=== PATIENT | female | born 2000 | race Caucasian/White ===

== ENCOUNTER 2021-01-07 02:16 | Observation (INO) | payer OTHER ==
[~2021-01-07] VITALS: Ht 154.9 cm; Wt 72.6 kg
[~2021-01-07 02:16] MED LIST: XOPENEX HFA15 GM
[2021-01-07] MEDS ORDERED: SODIUM CHLORIDE 0.9% 1000ML 1,000 ML IV ONE (02:30)
[2021-01-07] MEDS ORDERED: ALBUTEROL SULF 0.083% NEB SOLN 3 ML NEB NEB STA (02:30)
[2021-01-07] MEDS ORDERED: IPRATROPIUM BROMIDE 0.02% 2.5 ML NEB NEB ONE (02:30)
[2021-01-07] MEDS ORDERED: METHYLPREDNISOLONE SOD SUCC 125 MG/2ML VIAL IV ONE (02:30)
[2021-01-07 02:58] LABS: BASOPHILS % 0.2 % (0.0-1.0); EOSINOPHILS % 0.1 % (0.0-6.0); HEMATOCRIT 39.7 % (34.2-44.1); HEMOGLOBIN 13.2 g/dL (12.0-16.0); LYMPHOCYTES # (AUTO) 0.6 (1.0-3.2); LYMPHOCYTES % 3.8 % (18.0-39.1); MEAN CORPUSCULAR HGB CONC 33.2 g/dL (31-35); MEAN CORPUSCULAR VOLUME 81.4 fL (81-99); MONOCYTES # (AUTO) 0.1 (0.2-0.8); MONOCYTES % 0.9 % (4.4-11.3); NEUTROPHILS # (AUTO) 14.3 (2.1-6.9); NEUTROPHILS % 94.6 % (38.7-80.0); PLATELET COUNT 399 x10e3/uL (140-360); RED BLOOD COUNT 4.88 x10e6/uL (3.6-5.1); RED CELL DISTRIBUTION WIDTH 13.1 % (11.7-14.4)
[2021-01-07 03:14] LABS: ANION GAP 16.6 mmol/L (8-16); BLOOD UREA NITROGEN 5 mg/dL (7-26); BUN/CREATININE RATIO 8 (6-25); CALCIUM 9.1 mg/dL (8.4-10.2); CARBON DIOXIDE 17 mmol/L (22-29); CHLORIDE 109 mmol/L (98-107); EST GLOMERULAR FILTRATION RATE > 60 ML/MIN (60-); GLUCOSE 143 mg/dL (74-118); POTASSIUM 3.6 mmol/L (3.5-5.1); SODIUM 139 mmol/L (136-145)
[2021-01-07] MEDS ORDERED: METHYLPREDNISOLONE SOD SUCC 40 MG/ML VIAL 1ML IV SCH ×2 (06:00→14:00)
[2021-01-07] MEDS ORDERED: GUAIFENESIN/DEXTROMETHORPHAN LIQD 5 ML UDC NG PRN (06:45)
[2021-01-07] MEDS: ALBUTEROL/IPRATROPIUM 3 ML NEB NEB SCH ×3 (07:00→15:00)
[2021-01-07] MEDS: SODIUM CHLORIDE 0.9% 1000ML 1,000 ML IV SCH ×2 (07:37→12:45)
[2021-01-07] MEDS: FAMOTIDINE 20 MG TAB PO SCH ×2 (07:37→16:30)
[2021-01-07] MEDS ORDERED: PREN/MULTIVIT/MIN/FOL AC/IRON 1 TAB PO SCH (09:00)
[2021-01-07] MEDS ORDERED: LORATADINE 10 MG TAB PO SCH (09:00)
[2021-01-07] MEDS: FLUTICASONE PROPIONATE NASAL SPRAY NS SCH ×2 (09:19→16:43)
[2021-01-07 12:00] VITALS: BP 112/64
[2021-01-07 12:17] VITALS: BP 112/64
[2021-01-07 16:00] VITALS: BP 134/72
[2021-01-07] MEDS ORDERED: PROMETHAZINE HC25 M1 PO (16:25)
== END 2021-01-07 17:10 | disposition home or self-care (01) ==
LOC: ER 02:32 → ERHOLD 06:00 → MED/SURG2 10:16
PROVIDERS: ADMIT Internal Medicine; ATTEND Internal Medicine
DX: O98.511 Other viral diseases complicating pregnancy, first trimester (principal); O99.511 Diseases of the respiratory system complicating pregnancy, first trimester; U07.1 COVID-19; J12.82 Pneumonia due to coronavirus disease 2019; O26.891 Other specified pregnancy related conditions, first trimester; Z3A.01 Less than 8 weeks gestation of pregnancy; J45.41 Moderate persistent asthma with (acute) exacerbation
CPT/HCPCS: 36415; 71045; 80048; 80061; 82948; 83036; 84702; 85025; 94640 ×2; 99284; G0378; J2920; J2930; J7030; U0002

== ENCOUNTER 2022-12-30 06:37 | Inpatient (IN) | payer OTHER, MEDICAID ==
[~2022-12-30] VITALS: Ht 154.9 cm; Wt 83.5 kg
[~2022-12-30 06:37] MED LIST changes: +PROMETHAZINE HC25 M1 PO
[2022-12-30] MEDS ORDERED: METHYLPREDNISOLONE SOD SUCC 125 MG/2ML VIAL IV ONE (06:45)
[2022-12-30] MEDS ORDERED: ALBUTEROL/IPRATROPIUM 3 ML NEB NEB ONE (06:45)
[2022-12-30] MEDS ORDERED: SODIUM CHLORIDE 0.9% 1000ML 1,000 ML IV ONE ×2 (06:45→09:00)
[2022-12-30 06:55] LABS: BASOPHILS % 0.1 % (0.0-1.0); HEMATOCRIT 39.1 % (34.2-44.1); HEMOGLOBIN 13.8 g/dL (12.0-16.0); LYMPHOCYTES # (AUTO) 0.7 (1.0-3.2); LYMPHOCYTES % 4.1 % (18.0-39.1); MEAN CORPUSCULAR HEMOGLOBIN 28.3 pg (28-32); MEAN CORPUSCULAR HGB CONC 35.3 g/dL (31-35); MEAN CORPUSCULAR VOLUME 80.3 fL (81-99); MONOCYTES # (AUTO) 0.5 (0.2-0.8); MONOCYTES % 3.3 % (4.4-11.3); NEUTROPHILS # (AUTO) 14.5 (2.1-6.9); NEUTROPHILS % 91.7 % (38.7-80.0); PLATELET COUNT 337 x10e3/uL (140-360); RED BLOOD COUNT 4.87 x10e6/uL (3.6-5.1); RED CELL DISTRIBUTION WIDTH 18.4 % (11.7-14.4)
[2022-12-30] MEDS ORDERED: ALBUTEROL/IPRATROPIUM 3 ML NEB ONE (06:56)
[2022-12-30] MEDS ORDERED: ONDANSETRON HCL INJ 2MG/ML 2ML 2 MG/ML VIAL IV STA (07:14)
[2022-12-30 07:42] LABS: ALBUMIN 4.3 g/dL (3.5-5.0); ALBUMIN/GLOBULIN RATIO 1.2 (0.8-2.0); ANION GAP 15.9 mmol/L (8-16); CALCIUM 9.5 mg/dL (8.4-10.2); CREATININE, SERUM 0.72 mg/dL (0.57-1.11); POTASSIUM 3.9 mmol/L (3.5-5.1)
[2022-12-30] MEDS ORDERED: ONDANSETRON HCL INJ 2MG/ML 2ML 2 MG/ML VIAL IV PRN (08:15)
[2022-12-30] MEDS: NIRMATRELVIR/RITONAVIR 1 EACH BOX PO SCH ×2 (09:15→20:00)
[2022-12-30] MEDS ORDERED: ACETAMINOPHEN 325 MG TAB PO PRN (09:30)
[2022-12-30] MEDS ORDERED: IOPAMIDOL 370 MG/ML 100 ML INFUS..BTL INJ ONE (09:56)
[2022-12-30] MEDS ORDERED: BENZONATATE 100 MG CAP PO PRN (10:00)
[2022-12-30] MEDS: APIXAB 2.5 MG TABLET PO SCH ×2 (10:40→17:44)
[2022-12-30] MEDS: ALBUTEROL/IPRATROPIUM 3 ML NEB NEB SCH ×4 (11:05→23:20)
[2022-12-30] MEDS: SODIUM CHLORIDE 0.9% 1000ML 1,000 ML IV SCH ×2 (13:08→17:44)
[2022-12-30 14:30] VITALS: BP 119/63
[2022-12-30 14:46] VITALS: BP 119/63
[2022-12-30 15:34] VITALS: BP 119/63
[2022-12-30] MEDS: BENZONATATE 100 MG CAP PO SCH ×2 (17:44→22:27)
[2022-12-30 20:00] VITALS: BP 126/74
[2022-12-30 21:00] VITALS: BP 126/74
[2022-12-30] MEDS: METHYLPREDNISOLONE SOD SUCC 40 MG/ML VIAL 1ML IV SCH (22:26)
[2022-12-31] VITALS (8 sets, daily range): BP systolic 111–139; BP diastolic 66–84
[2022-12-31] MEDS: ALBUTEROL/IPRATROPIUM 3 ML NEB NEB SCH ×6 (03:20→23:25)
[2022-12-31] MEDS: SODIUM CHLORIDE 0.9% 1000ML 1,000 ML IV SCH ×4 (05:30→23:04)
[2022-12-31 05:48] LABS: BASOPHILS % 0.1 % (0.0-1.0); HEMATOCRIT 38.7 % (34.2-44.1); HEMOGLOBIN 12.3 g/dL (12.0-16.0); LYMPHOCYTES # (AUTO) 0.7 (1.0-3.2); MEAN CORPUSCULAR HEMOGLOBIN 25.2 pg (28-32); MEAN CORPUSCULAR HGB CONC 31.8 g/dL (31-35); MEAN CORPUSCULAR VOLUME 79.3 fL (81-99); MONOCYTES # (AUTO) 0.2 (0.2-0.8); MONOCYTES % 1.5 % (4.4-11.3); NEUTROPHILS # (AUTO) 15.1 (2.1-6.9); NEUTROPHILS % 93.6 % (38.7-80.0); PLATELET COUNT 390 x10e3/uL (140-360); RED BLOOD COUNT 4.88 x10e6/uL (3.6-5.1); RED CELL DISTRIBUTION WIDTH 14.6 % (11.7-14.4)
[2022-12-31 06:12] LABS: ANION GAP 11.5 mmol/L (8-16); CALCIUM 8.9 mg/dL (8.4-10.2); CREATININE, SERUM 0.74 mg/dL (0.57-1.11); POTASSIUM 4.5 mmol/L (3.5-5.1)
[2022-12-31] MEDS: NIRMATRELVIR/RITONAVIR 1 EACH BOX PO SCH (08:48)
[2022-12-31] MEDS: APIXAB 2.5 MG TABLET PO SCH ×2 (08:48→17:19)
[2022-12-31] MEDS: METHYLPREDNISOLONE SOD SUCC 40 MG/ML VIAL 1ML IV SCH ×2 (08:49→23:05)
[2022-12-31] MEDS: BENZONATATE 100 MG CAP PO SCH ×3 (08:49→23:05)
[2022-12-31] MEDS ORDERED: REMDESIVIR 100MG 200 MG in SODIUM CHLORIDE 0.9% 100 ML IV ONE (13:00)
[2022-12-31] MEDS: DEXAMETHASONE 4 MG TAB PO SCH (14:27)
[2023-01-01] VITALS (8 sets, daily range): BP systolic 114–141; BP diastolic 74–96
[2023-01-01] MEDS: ALBUTEROL/IPRATROPIUM 3 ML NEB NEB SCH ×6 (03:20→22:45)
[2023-01-01] MEDS: DEXAMETHASONE 4 MG TAB PO SCH (07:53)
[2023-01-01] MEDS: APIXAB 2.5 MG TABLET PO SCH ×2 (07:53→18:41)
[2023-01-01] MEDS: BENZONATATE 100 MG CAP PO SCH ×3 (07:54→23:36)
[2023-01-01] MEDS: SODIUM CHLORIDE 0.9% 1000ML 1,000 ML IV SCH ×2 (07:54→15:13)
[2023-01-01] MEDS: METHYLPREDNISOLONE SOD SUCC 40 MG/ML VIAL 1ML IV SCH (07:54)
[2023-01-01] MEDS ORDERED: REMDESIVIR 100MG 100 MG in SODIUM CHLORIDE 0.9% 100 ML IV SCH (14:00)
[2023-01-01] MEDS: GUAIFENESIN 600 MG TAB PO PRN (18:41)
[2023-01-02] VITALS (8 sets, daily range): BP systolic 132–141; BP diastolic 65–91
[2023-01-02] MEDS ORDERED: ONDANSETRON HCL 4 MG ORAL DISINTEGRATING TAB PO PRN (06:45)
[2023-01-02] MEDS: ALBUTEROL/IPRATROPIUM 3 ML NEB NEB SCH ×3 (08:00→20:45)
[2023-01-02] MEDS: AZITHROMYCIN 250 MG TAB PO SCH (10:04)
[2023-01-02] MEDS: APIXAB 2.5 MG TABLET PO SCH ×2 (10:04→16:48)
[2023-01-02] MEDS: GUAIFENESIN 600 MG TAB PO PRN (10:04)
[2023-01-02] MEDS: BENZONATATE 100 MG CAP PO SCH ×3 (10:05→21:06)
[2023-01-02] MEDS: DEXAMETHASONE 4 MG TAB PO SCH (10:05)
[2023-01-02] MEDS ORDERED: IOPAMIDOL 370 MG/ML 100 ML INFUS..BTL INJ ONE (12:18)
[2023-01-02] MEDS ORDERED: REMDESIVIR 100MG 100 MG in SODIUM CHLORIDE 0.9% 100 ML IV SCH (14:00)
[2023-01-02] MEDS: NICOTINE 21 MG/EA PATCH TOP SCH (23:30)
[2023-01-03 00:46] VITALS: BP 115/73
[2023-01-03] MEDS: ALBUTEROL/IPRATROPIUM 3 ML NEB NEB SCH ×3 (02:05→13:05)
[2023-01-03 04:00] VITALS: BP 142/77
[2023-01-03 08:04] VITALS: BP 133/76
[2023-01-03 08:57] VITALS: BP 133/76
[2023-01-03] MEDS: APIXAB 2.5 MG TABLET PO SCH (09:47)
[2023-01-03] MEDS: DEXAMETHASONE 4 MG TAB PO SCH (09:47)
[2023-01-03] MEDS: BENZONATATE 100 MG CAP PO SCH (09:48)
[2023-01-03] MEDS: AZITHROMYCIN 250 MG TAB PO SCH (09:48)
[2023-01-03] MEDS: NICOTINE 21 MG/EA PATCH TOP SCH (09:48)
[2023-01-03 11:56] VITALS: BP 129/85
[2023-01-03] MEDS ORDERED: ELIQUIS2.5 MG PO (12:26)
[2023-01-03] MEDS ORDERED: PROAIR DIGIHAL90 MCG (12:27)
[2023-01-03] MEDS ORDERED: DOXYCYCLINE HY100 MG PO (12:28)
== END 2023-01-03 13:48 | disposition home or self-care (01) | DRG 177 ==
LOC: ER 06:50 → ERHOLD 08:05 → OBSVTOIN 09:39 → MED/SURG3 14:29 → OBSVTOIN 12-31 09:21 → INTOOBSV 12-31 09:21
PROVIDERS: ADMIT Internal Medicine; ATTEND Internal Medicine
PROC: 8E0ZXY6 Isolation (ICD-10-PCS; 2022-12-30)
PROC: XW033E5 Introduction of Remdesivir Anti-infective into Peripheral Vein, Percutaneous Approach, New Technology Group 5 (ICD-10-PCS; principal; 2023-01-02)
DX: U07.1 COVID-19 (principal); J15.9 Unspecified bacterial pneumonia; J96.01 Acute respiratory failure with hypoxia; J45.901 Unspecified asthma with (acute) exacerbation; F17.200 Nicotine dependence, unspecified, uncomplicated
CPT/HCPCS: 36415; 71045; 71260; 80048; 80053; 84702; 85025; 87400; 93005; 94799; 99252; 99284; J0248; J0456; J0696; J2920; J2930; J7030; J7050; Q9967

== ENCOUNTER 2024-10-06 00:13 | Emergency (ER) | payer MEDICAID, OTHER ==
[~2024-10-06] VITALS: Ht 157.5 cm; Wt 86.2 kg
[~2024-10-06 00:13] MED LIST changes: +DOXYCYCLINE HY100 MG PO; +ELIQUIS2.5 MG PO; +PROAIR DIGIHAL90 MCG
[2024-10-06 00:21] VITALS: RESP 20; TEMP 98.3
[2024-10-06] MEDS: PREDNISONE 20 MG TAB PO STA (00:35)
[2024-10-06] MEDS: ALBUTEROL/IPRATROPIUM 3 ML NEB NEB STA (00:42)
[2024-10-06 00:43] VITALS: PULSE 107; RESP 20; O2SAT 96
[2024-10-06 01:12] LABS: CORONAVIRUS COVID-19 AG NEGATIVE (NEGATIVE); INFLUENZA A AG NEGATIVE (NEGATIVE); INFLUENZA B AG NEGATIVE (NEGATIVE)
[2024-10-06 01:20] VITALS: PULSE 107
[2024-10-06] MEDS ORDERED: AZITHROMYCIN250 MG PO (01:20)
[2024-10-06] MEDS ORDERED: PREDNISONE20 MG PO (01:20)
[2024-10-06] MEDS ORDERED: VENTOLIN HFA18 GM INH (01:20)
[2024-10-06 01:30] VITALS: BP 125/72; PULSE 108; RESP 20; O2SAT 96
== END 2024-10-06 01:28 | disposition home or self-care (01) ==
LOC: ER 00:26
DX: R06.02 Shortness of breath (principal); J06.9 Acute upper respiratory infection, unspecified; J45.901 Unspecified asthma with (acute) exacerbation; R05.9 Cough, unspecified; Z11.52 Encounter for screening for COVID-19
CPT/HCPCS: 87428; 94640; 94799; 99283; J7512

== ENCOUNTER 2024-10-12 19:50 | Emergency (ER) | payer MEDICAID ==
[~2024-10-12] VITALS: Ht 154.9 cm; Wt 88.5 kg
[~2024-10-12 19:50] MED LIST changes: +AZITHROMYCIN250 MG PO; +PREDNISONE20 MG PO; +VENTOLIN HFA18 GM INH
[2024-10-12 19:58] VITALS: TEMP 98.9
[2024-10-12] MEDS ORDERED: ALBUTEROL SULF 0.083% NEB SOLN 3 ML NEB ONE (20:17)
[2024-10-12] MEDS: METHYLPREDNISOLONE SOD SUCC 125 MG/2ML VIAL IM ONE (20:23)
[2024-10-12] MEDS: ALBUTEROL SULF 0.083% NEB SOLN 3 ML NEB NEB STA (20:25)
[2024-10-12 20:26] VITALS: PULSE 101; RESP 20; O2SAT 99
[2024-10-12] MEDS: IPRATROPIUM BROMIDE 0.02% 2.5 ML NEB NEB ONE (20:26)
[2024-10-12] MEDS ORDERED: MEDROL4 M2 PO (21:11)
[2024-10-12] MEDS ORDERED: ALBUTEROL1.25 MG/3 NEB (21:11)
[2024-10-12] MEDS ORDERED: VENTOLIN HFA18 GM INH (21:11)
[2024-10-12 21:20] VITALS: PULSE 93; RESP 20
[2024-10-12 21:26] VITALS: BP 140/91; PULSE 105; RESP 20; O2SAT 98
== END 2024-10-12 21:30 | disposition home or self-care (01) ==
LOC: ER 19:59
DX: R06.02 Shortness of breath (principal); J45.901 Unspecified asthma with (acute) exacerbation
CPT/HCPCS: 71045; 94640; 94799; 99283; J2919

== ENCOUNTER 2025-07-18 14:27 | Emergency (ER) | payer MEDICAID, OTHER ==
[~2025-07-18] VITALS: Ht 154.9 cm; Wt 86.2 kg
[~2025-07-18 14:27] MED LIST changes: +ALBUTEROL1.25 MG/3 NEB; +MEDROL4 M2 PO
[2025-07-18] MEDS: ALBUTEROL/IPRATROPIUM 3 ML NEB NEB ONE (15:45)
[2025-07-18] MEDS: DEXAMETHASONE SOD PHOS 10 MG/1 ML VIAL IM ONE (16:04)
[2025-07-18 16:39] VITALS: PULSE 98; RESP 17; TEMP 98.4
[2025-07-18 16:57] VITALS: BP 131/84; PULSE 98; RESP 17; TEMP 98.4; O2SAT 100
== END 2025-07-18 16:40 | disposition home or self-care (01) ==
LOC: ER 15:11
DX: J45.901 Unspecified asthma with (acute) exacerbation (principal); F17.210 Nicotine dependence, cigarettes, uncomplicated
CPT/HCPCS: 99283; J1100

== ENCOUNTER 2025-07-22 23:22 | Emergency (ER) | payer OTHER, MEDICAID ==
[~2025-07-22] VITALS: Ht 154.9 cm; Wt 86.2 kg
[2025-07-22 23:22] VITALS: PULSE 130; RESP 24; TEMP 98.4
[2025-07-22] MEDS ORDERED: ALBUTEROL/IPRATROPIUM 3 ML NEB ONE (23:29)
[2025-07-22] MEDS: ALBUTEROL/IPRATROPIUM 3 ML NEB NEB ONE (23:37)
[2025-07-22 23:38] VITALS: PULSE 123; RESP 22; O2SAT 97
[2025-07-22] MEDS: METHYLPREDNISOLONE SOD SUCC 125 MG/2ML VIAL IV ONE (23:38)
[2025-07-23] MEDS: SODIUM CHLORIDE 0.9% 1000ML 1,000 ML IV ONE ×2 (00:13)
[2025-07-23] MEDS ORDERED: PREDNISONE50 MG PO (01:28)
[2025-07-23 01:55] VITALS: BP 115/74; PULSE 108; RESP 22; O2SAT 100
== END 2025-07-23 01:40 | disposition home or self-care (01) ==
LOC: ER 23:26
DX: R06.02 Shortness of breath (principal); J45.901 Unspecified asthma with (acute) exacerbation
CPT/HCPCS: 94640; 94799; 99283; J2919; J7030

== ENCOUNTER 2025-07-25 21:10 | Inpatient (IN) | payer MEDICAID, MEDICARE, OTHER ==
[~2025-07-25] VITALS: Ht 154.9 cm; Wt 86.2 kg
[~2025-07-25 21:10] MED LIST changes: +PREDNISONE50 MG PO
[2025-07-25 21:14] VITALS: TEMP 98.3
[2025-07-25] MEDS ORDERED: ALBUTEROL/IPRATROPIUM 3 ML NEB ONE (21:19)
[2025-07-25 21:26] VITALS: PULSE 98; RESP 22; O2SAT 98
[2025-07-25] MEDS: ALBUTEROL/IPRATROPIUM 3 ML NEB NEB SCH (21:26)
[2025-07-25] MEDS: SODIUM CHLORIDE 0.9% 1000ML 1,000 ML IV STA (21:48)
[2025-07-25] MEDS: MAGNESIUM SULF 1GRAM/DEXTROSE 100 ML IV ONE (21:48)
[2025-07-25] MEDS: PREDNISONE 20 MG TAB PO STA (21:48)
[2025-07-25 21:54] LABS: BASOPHILS % 0.1 % (0.0-1.0); EOSINOPHILS % 0.3 % (0.0-6.0); LYMPHOCYTES % 19.5 % (18.0-39.1); MONOCYTES % 4.9 % (4.4-11.3); NEUTROPHILS % 74.5 % (38.7-80.0); RED CELL DISTRIBUTION WIDTH 15.5 % (11.7-14.4)
[2025-07-25 22:02] LABS: CORONAVIRUS COVID-19 AG NEGATIVE (NEGATIVE)
[2025-07-25 22:06] LABS: EST GLOMERULAR FILTRATION RATE 96.0 ML/MIN (>=60)
[2025-07-25 23:00] VITALS: PULSE 96; RESP 20
[2025-07-25 23:30] VITALS: BP 128/80; PULSE 96; RESP 18; TEMP 98.5; O2SAT 98
[2025-07-25 23:50] VITALS: BP 128/80; PULSE 96; RESP 18; TEMP 98.5; O2SAT 98
[2025-07-25 23:55] VITALS: BP 128/80; PULSE 96; RESP 18; TEMP 98.5; O2SAT 98
[2025-07-26] VITALS (9 sets, daily range): BP systolic 107–167; BP diastolic 73–88; PULSE 76–102; RESP 18–23; TEMP 96.7–98.6; O2SAT 97–100
[2025-07-26] MEDS: SODIUM CHLORIDE 0.9% 1000ML 1,000 ML IV SCH (00:03)
[2025-07-26] MEDS ORDERED: CETIRIZINE HCL10 MG PO (00:52)
[2025-07-26 05:44] LABS: BASOPHILS % 0.2 % (0.0-1.0); EOSINOPHILS % 0.1 % (0.0-6.0); LYMPHOCYTES % 10.6 % (18.0-39.1); MONOCYTES % 1.9 % (4.4-11.3); NEUTROPHILS % 86.7 % (38.7-80.0); RED CELL DISTRIBUTION WIDTH 15.6 % (11.7-14.4)
[2025-07-26 06:10] LABS: EST GLOMERULAR FILTRATION RATE 128.0 ML/MIN (>=60)
[2025-07-26] MEDS ORDERED: FLUTICASONE PROPIONATE 220MCG INH INH SCH (11:05)
[2025-07-26] MEDS: BUDESONIDE 90 MCG FLEXHALER IH SCH (11:30)
[2025-07-26] MEDS: MONTELUKAST SODIUM 10 MG TAB PO SCH (21:13)
[2025-07-27] VITALS (10 sets, daily range): BP systolic 104–135; BP diastolic 71–99; PULSE 77–118; RESP 17–20; TEMP 97.8–98.9; O2SAT 96–100
[2025-07-27] MEDS ORDERED: MONTELUKAST SOD10 MG PO (10:28)
== END 2025-07-27 16:15 | disposition home or self-care (01) | DRG 202 ==
LOC: ER 21:18 → ERHOLD 21:44 → MED/SURG2 23:38
PROVIDERS: ADMIT Internal Medicine; ATTEND Internal Medicine
DX: J45.31 Mild persistent asthma with (acute) exacerbation (principal); E87.20 Acidosis, unspecified; D72.829 Elevated white blood cell count, unspecified; T38.0X5A Adverse effect of glucocorticoids and synthetic analogues, initial encounter; T78.49XA Other allergy, initial encounter; D64.9 Anemia, unspecified; Z86.16 Personal history of COVID-19; Z11.52 Encounter for screening for COVID-19; Z79.51 Long term (current) use of inhaled steroids
CPT/HCPCS: 36415; 80053; 83518; 85025; 87070; 94640; 94664; 94799; 99284; J3475; J7030; J7512; J7633